=== PATIENT | male | born 1970 | race African-American/Black ===

== ENCOUNTER 2019-02-25 02:36 | Emergency (ER) | payer BC ==
[~2019-02-25] VITALS: Ht 182.9 cm; Wt 99.3 kg
[~2019-02-25 02:36] MED LIST: LISI10TA2 PO
[2019-02-25 02:42] VITALS: BP 140/87
--- NOTE | 2019-02-25 02:51 | PHYS DOC ---
Past Medical History Past Medical History: Hypertension Past Surgical History: No Surgical History Alcohol Use: Occasionally Drug Use: None Adult General Chief Complaint Chief Complaint: LACERATION/AVULSION HPI HPI 48-year-old male presents with a small laceration to his left thumb. He put his hand up into a broken mirror. He states the wound would not stop bleeding so he came here concerned that he might bleed to . He has been drinking alcohol tonight. He is unsure when his last tetanus was.[] Review of Systems Review of Systems Constitutional: Denies fever or chills [] Eyes: Denies change in visual acuity, redness, or eye pain [] HENT: Denies nasal congestion or sore throat [] Respiratory: Denies cough or shortness of breath [] Cardiovascular: No additional information not addressed in HPI [] GI: Denies abdominal pain, nausea, vomiting, bloody stools or diarrhea [] : Denies dysuria or hematuria [] Musculoskeletal: Denies back pain or joint pain [] Integument: Per history of present illness[] Neurologic: Denies headache, focal weakness or sensory changes [] Endocrine: Denies polyuria or polydipsia [] All other systems were reviewed and found to be within normal limits, except as documented in this note. Allergies Allergies Allergies Coded Allergies Type Severity Reaction Last Updated Verified bacitracin Allergy Intermediate itching 04/22/15 Yes neomycin Allergy Intermediate itching 04/22/15 Yes polymyxin B Allergy Intermediate itching 04/22/15 Yes Physical Exam Physical Exam Constitutional: Well developed, well nourished, no acute distress, appears intoxicated[] Cardiovascular:Heart rate regular rhythm, no murmur [] Lungs & Thorax: Bilateral breath sounds clear to auscultation [] Abdomen: Bowel sounds normal, soft, no tenderness, no masses, no pulsatile mas ses. [] Skin: Warm, dry, no erythema, no rash. [] Back: No tenderness, no CVA tenderness. [] Extremities: There is a tiny skin avulsion left thumb that is not actively bleeding is not something that can be repaired. [] Neurologic: Alert and oriented X 3, normal motor function, normal sensory fun ction, no focal deficits noted. [] Psychologic: Very pleasant. [] EKG EKG [] Radiology/Procedures Radiology/Procedures [] Course & Med Decision Making Course & Med Decision Making Pertinent Labs and Imaging studies reviewed. (See chart for details) [] Dragon Disclaimer Dragon Disclaimer This electronic medical record was generated, in whole or in part, using a voice recognition dictation system. Departure Departure Impression: Primary Impression: Thumb laceration Disposition: 01 HOME, SELF-CARE Condition: STABLE Referrals: WING AU MD (PCP) Patient Instructions: Laceration Care, Adult Additional Instructions: Return to the emergency department with any new or concerning symptoms Problem Qualifiers Primary Impression: Thumb laceration Encounter type: initial encounter Damage to nail status: without damage Foreign body presence: without foreign body Laterality: left Qualified Codes: S61.012A - Laceration without foreign body of left thumb without damage to nail, initial encounter JESUS TRIVEDI DO Feb 25, 2019 02:51
[2019-02-25] MEDS ORDERED: TETANUS AND DIPHTHERIA TOX/PF 0.5 ML DISP.SYRIN. VAX IM ONE (03:00)
== END 2019-02-25 03:10 | disposition home or self-care (01) ==
LOC: ER 02:36
DX: S61.012A Laceration without foreign body of left thumb without damage to nail, initial encounter (principal); I10 Essential (primary) hypertension; Z88.1 Allergy status to other antibiotic agents; W25.XXXA Contact with sharp glass, initial encounter; Y93.89 Activity, other specified; Y92.89 Other specified places as the place of occurrence of the external cause; Y99.8 Other external cause status
CPT/HCPCS: 90471; 90714; 99283-25